=== PATIENT | male | born 1965 | race African-American/Black ===

== ENCOUNTER 2019-05-31 20:03 | Emergency (ER) | payer BC ==
[~2019-05-31] VITALS: Ht 185.4 cm; Wt 86.6 kg
[2019-05-31 20:55] LABS: INFLUENZA A ANTIGEN Negative (Negative); INFLUENZA B ANTIGEN Negative (Negative)
[2019-05-31] MEDS ORDERED: ZPAK PO (20:58)
[2019-05-31] MEDS ORDERED: VENTOLIN HFA 1818 GM INH (20:58)
[2019-05-31 21:06] VITALS: BP 137/84
== END 2019-05-31 21:07 | disposition home or self-care (01) ==
LOC: M.ERS 20:03
PROVIDERS: Nurse Practitioner Family
DX: J40 Bronchitis, not specified as acute or chronic (principal); E11.9 Type 2 diabetes mellitus without complications